=== PATIENT | female | born 1985 | race Caucasian/White ===

== ENCOUNTER 2024-05-21 08:31 | Emergency (ER) | payer MEDICAID ==
[~2024-05-21] VITALS: Ht 157.5 cm; Wt 98.7 kg
[2024-05-21 09:11] LABS: Urine Bacteria None Seen /hpf (None Seen)
[2024-05-21 09:17] LABS: Basophils # (auto) 0.1 10 ^3/uL (0-0.2); Basophils % (auto) 0.6 % (0.0-2.0); Eosinophils # (auto) 0.2 10 ^3/uL (0-0.8); Eosinophils % (auto) 1.1 % (0.0-7.0); Hematocrit 37.2 % (36.0-46.0); Hemoglobin 12.4 g/dL (12.2-16.2); Lymphocytes # (auto) 2.4 10 ^3/uL (0.4-5.4); Mean Corpuscular Hemoglobin 30.3 pg (28.0-32.0); Mean Corpuscular Hgb Conc. 33.3 g/dL (32.0-36.0); Mean Corpuscular Volume 90.9 fL (80.0-100.0); Monocytes # (auto) 1.2 10 ^3/uL (0-1.3); Monocytes % (auto) 7.7 % (0.0-12.0); Neutrophils # (auto) 11.2 10 ^3/uL (1.6-8.6); Neutrophils % (auto) 74.6 % (37.0-80.0); Platelet Count (auto) 461 10^3/uL (140-450); Red Cell Distribution Width 12.6 % (11.8-14.3)
[2024-05-21 09:20] LABS: Urine Blood 2+ /uL (Negative); Urine Clarity Turbid (Clear); Urine Color Yellow (Yellow); Urine Mucus FEW (None Seen); Urine Protein, UAD 1+ (Negative); Urine Specific Gravity 1.032 (1.001-1.035); Urine Urobilinogen 2 mg/dL (Negative); Urine WBC 11 /hpf (0 - 5)
--- NOTE | 2024-05-21 09:23 | ED.PDOC ---
History of Present Illness HPI Comments 39Y F with PMHx cholecystectomy presents to ED for chief complaint lt flank pain x1wk with abd pain, low back pain, intermittent constipation, fatigue, and chills. Pt denies n/v/d and dysuria. Pt had food poisoning 3wks ago and during that time experienced vomiting, constipation, and fever. Pt also went to last week and was told UA had specks of blood in it. To try and alleviate constipation, pt tried taking Senna Lax, olive oil, and colonoscopy prep liquid from family member. Pt states she took Tylenol this morning at 0300. LMP >1yr and pt has IUD. No known allergies. Chief Complaint: Abdominal Pain Time Seen by MD: 08:54 Reviewed Notes: Medications, Allergies Information Source: Patient Mode of Arrival: Ambulatory Severity: Mild Timing: Days Duration: Since onset Past Medical History PAST MEDICAL HISTORY: Denies Surgical History: Cholecystectomy MANAGER TARGET History: Denies all MANAGER TARGET Hx Family History Family History: Unknown Social History Smoker: Non-Smoker Alcohol: Denies ETOH Use Drugs: Denies Drug Use Lives In: Home Constitutional: reports: chills, fatigue; denies: diaphoresis, fever, malaise, sweats, weakness, others EENTM: denies: blurred vision, double vision, ear bleeding, ear discharge, ear drainage, ear pain, ear ringing, eye pain, eye redness, hearing loss, mouth pain, mouth swelling, nasal discharge, nose bleeding, nose congestion, nose pain, photophobia, tearing, throat pain, throat swelling, voice changes, others Respiratory: denies: cough, hemoptysis, orthopnea, SOB at rest, shortness of breath, SOB with excertion, stridor, wheezing, others Cardiovascular: denies: chest pain, dizzy spells, diaphoresis, Dyspnea on exertion, edema, irregular heart beat, left arm pain, lightheadedness, palpitations, PND, syncope, others Gastrointestinal: reports: abdominal pain, constipated; denies: abdomen distended, blood streaked bowels, diarrhea, dysphagia, difficulty swallowing, hematemesis, melena, nausea, poor appetite, poor fluid intake, rectal bleeding, rectal pain, vomiting, others Genitourinary: reports: flank pain; denies: abnormal vagina bleeding, burning, dyspareunia, dysuria, frequency, hematuria, incontinence, pain, , vagina discharge, urgency, others Neurological: denies: dizziness, fainting, headache, left sided numbness, left sided weakness, numbness, paresthesia, pre-existing deficit, right sided numbness, right sided weakness, seizure, speech problems, tingling, tremors, weakness, others Musculoskeletal: reports: back pain; denies: gout, joint pain, joint swelling, muscle pain, muscle stiffness, neck pain, others Integumetry: denies: bruises, change in color, change in hair/nails, dryness, laceration, lesions, lumps, rash, wounds, others Allergic/Immunocompromised: denies: Difficulty Healing, Frequent Infections, Hives, Itching, others Hematologic/Lymphatic: denies: anemia, blood clots, easy bleeding, easy brui sing, swollen glands, others Endocrine: denies: excessive hunger, excessive sweating, excessive thirst, ex cessive urination, flushing, intolerance to cold, intolerance to heat, unexplained weight gain, unexplained weight loss, others Psychiatric: denies: anxiety, bipolar disorder, depression, hopeless, panic disorder, schizophrenia, sleepless, suicidal, others All Other Systems: Reviewed and Negative Physical Exam General Appearance: No Apparent Distress, Normal HEENT: Normal ENT Inspection, Pharynx Normal, TMs Normal Neck: Full Range of Motion, Non-Tender, Normal, Normal Inspection Respiratory: Chest Non-Tender, Lungs Clear, No Accessory Muscle Use, No Respiratory Distress, Normal Breath Sounds Cardiovascular: No Edema, No JVD, No Murmur, No Gallop, Normal Peripheral Pulses, Regular Rate/Rhythm Breast Exam: Deferred Gastrointestinal: No Pulsatile Mass, Normal Bowel Sounds, Tenderness (Lt CVA) Genitalia: Deferred Pelvic: Deferred Rectal: Deferred Extremities: No calf tenderness, Normal capillary refill, Normal inspection, Normal range of motion, Non-tender, No pedal edema Musculoskeletal : Apperance: Normal Neurologic: Alert, sand slinger operator II-XII nml as Tested, No Motor Deficits, Normal Affect, Normal Mood, No Sensory Deficits Cerebellar Function: Normal Reflexes: Normal Skin: Dry, Normal Color, Warm Lymphatic: No Adenopathy Was a procedure done? Was a procedure done?: No Differential Dx Considerations may include: pyelonephritis, UTI, influenza, constipation, covid, kidney stone, colitis X-Ray, Labs, Meds, VS Vital Signs Date Time Temp Pulse Resp B/P (MAP) Pulse Ox O2 Delivery O2 Flow Rate FiO2 05/21/24 08:47 98.9 99 16 126/73 (90) 97 Lab Test 05/21/24 09:03 05/21/24 09:00 Range/Units White Blood Count 15.0 H 4.4-10.8 10^3/uL Red Blood Count 4.10 4.0-5.20 10^6/uL Hemoglobin 12.4 12.2-16.2 g/dL Hematocrit 37.2 36.0-46.0 % Mean Corpuscular Volume 90.9 80.0-100.0 fL Mean Corpuscular Hemoglobin 30.3 28.0-32.0 pg Mean Corpuscular Hemoglobin Concent 33.3 32.0-36.0 g/dL Red Cell Distribution Width 12.6 11.8-14.3 % Platelet Count 461 H 140-450 10^3/uL Mean Platelet Volume 8.3 6.9-10.8 fL Neutrophils (%) (Auto) 74.6 37.0-80.0 % Lymphocytes (%) (Auto) 16.0 10.0-50.0 % Monocytes (%) (Auto) 7.7 0.0-12.0 % Eosinophils (%) (Auto) 1.1 0.0-7.0 % Basophils (%) (Auto) 0.6 0.0-2.0 % Neutrophils # (Auto) 11.2 H 1.6-8.6 10 ^3/uL Lymphocytes # (Auto) 2.4 0.4-5.4 10 ^3/uL Monocytes # (Auto) 1.2 0-1.3 10 ^3/uL Eosinophils # (Auto) 0.2 0-0.8 10 ^3/uL Basophils # (Auto) 0.1 0-0.2 10 ^3/uL Nucleated Red Blood Cells 0.0 % Sodium Level 138 136-145 mmol/L Potassium Level 3.5 3.5-5.1 mmol/L Chloride Level 103 98-107 mmol/L Carbon Dioxide Level 29 20-31 mmol/L Anion Gap 6 5-15 Blood Urea Nitrogen 6 L 9-23 mg/dL Creatinine 0.70 0.550-1.02 mg/dL Glomerular Filtration Rate Calc 113 >90 mL/min BUN/Creatinine Ratio 8.6 L 10.0-20.0 Serum Glucose 122 H 74-106 mg/dL Calcium Level 9.9 8.7-10.4 mg/dL Total Bilirubin 0.5 0.2-1.0 mg/dL Aspartate Amino Transferase (AST) < 8 L 13-40 U/L Alanine Aminotransferase (ALT) 13 7-40 U/L Alkaline Phosphatase 61 46-116 U/L Total Protein 7.7 5.7-8.2 g/dL Albumin 4.5 3.2-4.8 g/dL Beta HCG, Quantitative 1.3 L 1.5-4.2 mIU/mL Urine Color Yellow Yellow Urine Clarity Turbid H Clear Urine pH 6.0 5.0-9.0 Urine Specific [place] 1.032 1.001-1.035 Urine Protein 1+ H Negative Urine Ketones Negative Negative Urine Blood 2+ H Negative /uL Urine Nitrite Negative Negative Urine Bilirubin Negative Negative Urine Urobilinogen 2 H Negative mg/dL Urine Leukocyte Esterase Negative Negative /uL Urine RBC 33 0 - 4 /hpf Urine WBC 11 0 - 5 /hpf Urine Squamous Epithelial Cells Mod <5 /hpf Urine Bacteria None seen None Seen /hpf Urine Mucus Few None Seen Urine Glucose Normal Normal mg/dL [place] [id number] Ph: [phone] DIAGNOSTIC IMAGING Diagnostic Imaging Report : [id number] Signed PATIENT: REGINA RAY ACCT: [id number] UNIT: [id number] : 1985 LOC: ER ROOM / BED: / AGE / SEX: 39 / F ADM STATUS: REG ER SERVICE [id number] ORDERING PHYSICIAN: JOSE FRY MD PROCEDURE(s): KUB - KUB ABDOMEN SINGLE VIEW REASON: abd pain, constipation ORDER NUMBER(s): [id number], ACCESSION NUMBER(s): [id number] INDICATION: abd pain, constipation TECHNIQUE: Multiple views of the abdomen were obtained. COMPARISON: None FINDINGS: Nonobstructive bowel gas pattern noted. There is no evidence for pneumoperitoneum. No abnormal calcifications noted. Intrauterine device is noted. The lung bases are clear. The visualized osseous structures appear intact. IMPRESSION: 1. Nonobstructive bowel gas pattern noted. ATED BY: SCOOTER HOPPER MD DICTATED DATE/TIME: 05/21/24 105 SIGNED BY: SCOOTER HOPPER MD SIGNED DATE/TIME: 05/21/241052 CC: [place] [id number] Ph: [phone] DIAGNOSTIC IMAGING Diagnostic Imaging Report : [id number] Signed PATIENT: REGINA RAY ACCT: [id number] UNIT: [id number] : 1985 LOC: ER ROOM / BED: / AGE / SEX: 39 / F ADM STATUS: REG ER SERVICE [id number] ORDERING PHYSICIAN: JOSE FRY MD PROCEDURE(s): ABPL - CT AB PEL WO CON-NO ORAL OR IV REASON: ro nephrolithiasis ORDER NUMBER(s): [id number], ACCESSION NUMBER(s): [id number] Procedure: CT CT AB PEL WO CON-NO ORAL OR IV 05/21/2024 10:25 AM Indication:ro nephrolithiasis. Comparison Study: None available at time of dictation. Technique: Axial images were obtained and reformatted in coronal and sagittal planes. All CT scans at this medical facility are performed using dose modulation techniques as appropriate to a performed exam including the following: Automated exposure control was utilized; adjustment of the MA and/or KV according to patient size; and use of iterative reconstruction technique. CT Dose: CTDI volume is 19.27 mGy. Dose-length product is 985.0 mGy*cm FINDINGS: Lower Chest: Unremarkable. Hepatobiliary: Gallbladder is surgically absent. Spleen: Unremarkable. Pancreas: Unremarkable. Adrenal Glands: Unremarkable. tract: The kidneys are normal in size bilaterally without hydronephrosis or nephrolithiasis. The urinary bladder is unremarkable. GI tract: The stomach is grossly normal in appearance. No evidence of small bowel obstruction. Scattered colonic diverticula are noted without evidence of diverticulitis. Severe circumferential mural thickening of rectum with extensive adjacent fat stranding noted The appendix is not visualized. No inflammatory change is noted in the right lower quadrant. Lymphatics: No mesenteric, retroperitoneal or periportal lymphadenopathy. Vasculature: The abdominal aorta is normal in in caliber. Pelvic Organs: Anteverted , elongated uterus. The IUD is in good fundal position but its distal tip is very close to the anterior uterine serosa which could be at the level of scar or penetrating the myometrium. Moderate fluid is seen in cul-de-sac. Bones/soft tissues: No acute abnormality. Other: None. IMPRESSION: 1. Circumferential mural thickening of rectum with moderate adjacent fat stranding compatible with proctitis. 2. Moderate fluid is seen in cul-de-sac likely related to proctitis. 3. No urinary calculi. 4. Scattered colonic diverticula without evidence of diverticulitis. 5. The distal tip of the IUD is very close to anterior distal uterine segment serosa which could be due to thinning of uterine wall related to scar or IUD myometrial penetration. Suggest further evaluation with pelvic sonogram. ATED BY: ZAIRA LOWRY MD DICTATED DATE/TIME: 05/21/24 112 SIGNED BY: ZAIRA LOWRY MD SIGNED DATE/TIME: 05/21/24 112 CC: [place] [id number] Ph: [phone] DIAGNOSTIC IMAGING Diagnostic Imaging Report : [id number] Signed PATIENT: REGINA RAY ACCT: [id number] UNIT: [id number] : 1985 LOC: ER ROOM / BED: / AGE / SEX: 39 / F ADM STATUS: REG ER SERVICE 1147 ORDERING PHYSICIAN: JOSE FRY MD PROCEDURE(s): PELUS - PELVIC REASON: ro myometrial penetration of IUD ORDER NUMBER(s): [id number], ACCESSION NUMBER(s): [id number] INDICATION: Concern for myometrial penetration of IUD. TECHNIQUE: Multiple real-time grayscale transabdominal and transvaginal sonographic images along with color and duplex Doppler of the uterus and ovaries were obtained. COMPARISON: None FINDINGS: The uterus measures 9.1 cm. The endometrial stripe is not well seen. Intrauterine device is noted in satisfactory position within the uterine fundus. Trace fluid seen within the cervix. The right ovary measures 3.6 x 3.7 x 2.6 cm. The left ovary measures 3.5 x 2.5 x 2.3 cm. Subsequent color and duplex Doppler interrogation of the ovaries demonstrated symmetric vascular flow to both ovaries. IMPRESSION: 1. Grossly unremarkable pelvic ultrasound. Satisfactory position of intrauterine device. ATED BY: SCOOTER HOPPER MD DICTATED DATE/TIME: 05/21/241255 SIGNED BY: SCOOTER HOPPER MD SIGNED DATE/TIME: 05/21/241255 CC: 39-year-old female presents here with abdominal pain. She also reports difficulty with bowel movements states some often she feels like she has to have BM but nothing comes out. At this time blood work has been done which does demonstrates a leukocytosis of 15. Therefore a CT abdomen pelvis was performed. It demonstrates evidence of proctitis. I spoke with the patient private she declines any rectal intercourse. She denies any reason or exposure to gonorrhea or chlamydia as far as she is concerned. The exact cause of her proctitis is unclear. She does state she had a food poisoning 3 weeks ago that started this all. At this time I will be discharging home with Augmentin. Uterine demonstrates some protein urobilinogen and also blood. She does not report any dysuria. Doubt infection. Advised her however if the blood in the urine and protein continues that she may require seeing a protective signal repairer helper. Patient agrees. CT however did demonstrate questionable positioning of her IUD and recommended a pelvic ultrasound. Pelvic ultrasound has been done which demonstrates satisfactory position of her IUD. Advised patient of this. Advised her to return if his symptoms worsen or persist. Otherwise she is to follow up with the PCP in 2-3 days. Time of 1ST Reevaluation: 09:24 Reevaluation 1ST: Unchanged Time of 2ND Reevaluation: 13:25 Reevaluation 2ND: Improved Patient Education/Counseling: Diagnosis, Treatment Family Education/Counseling: Diagnosis, Treatment Departure 1 Departure Time of Disposition: 10:30 Impression: Primary Impression: Proctitis Additional Impression: Hematuria Qualified Codes: R31.9 - Hematuria, unspecified Disposition: HOME / SELF CARE / HOMELESS Condition: Stable Additional Instructions: Your IUD is in satisfactory position today. Please follow up with the primary care physician. Return to the ER if symptoms worsen or persist. Your prescription for antibiotics has been sent to the pharmacy. Take probiotic yogurt drinks or probiotic tablets while taking the antibiotics to prevent diarrhea from the antibiotics. e-Prescriptions Amoxicillin & Pot Clavulanate (AUGMENTIN TABLET) 875 Mg Tb 875 MG PO BID, #20 TAB Prov: JOSE FRY MD 05/21/24 Critical Care Note Critical Care Time?: No Stability Stability form required: No Heart Score Heart Score: Heart Score Response (Comments) Value History N/A 0 EKG N/A 0 Age N/A 0 Risk Factors N/A 0 Troponin N/A 0 Total 0 I personally scribed for JOSE FRY MD ([email or web address]) on 05/21/24 at 09:23. Electronically submitted by Lili Uribe ([email or web address]). I personally scribed for JOSE FRY MD ([email or web address]) on 05/21/24 at 11:47. Electronically submitted by Lili Uribe ([email or web address]). JOSE FRY MD May 21, 2024 09:23
[2024-05-21 09:35] LABS: Alanine Aminotransferase 13 U/L (7-40); Albumin 4.5 g/dL (3.2-4.8); Alkaline Phosphatase 61 U/L (46-116); Anion Gap 6 (5-15); Aspartate Aminotransferase < 8 U/L (13-40); BUN/Creatinine Ratio 8.6 (10.0-20.0); Bilirubin, Total 0.5 mg/dL (0.2-1.0); Blood Urea Nitrogen 6 mg/dL (9-23); Calcium 9.9 mg/dL (8.7-10.4); Carbon Dioxide 29 mmol/L (20-31); Chloride 103 mmol/L (98-107); Glucose 122 mg/dL (74-106); Potassium 3.5 mmol/L (3.5-5.1); Sodium 138 mmol/L (136-145)
[2024-05-21 09:36] LABS: Total Protein 7.7 g/dL (5.7-8.2)
--- NOTE | 2024-05-21 10:55 | DVH ---
INDICATION: abd pain, constipation TECHNIQUE: Multiple views of the abdomen were obtained. COMPARISON: None FINDINGS: Nonobstructive bowel gas pattern noted. There is no evidence for pneumoperitoneum. No abnormal calcif ications noted. Intrauterine device is noted. The lung bases are clear. The visualized osseous structures appear intact. IMPRESSION: 1. Nonobstructive bowel gas pattern noted.
--- NOTE | 2024-05-21 11:30 | DVH ---
Procedure: CT CT AB PEL WO CON-NO ORAL OR IV 05/21/2024 10:25 AM Indication:ro nephrolithiasis. Comparison Study: None available at time of dictation. Technique: Axial images were obtained and reformatted in coronal and sagittal planes. All CT scans at this medical facility are performed using dose modulation techniques as appropriate t o a performed exam including the following: Automated exposure control was utilized; adjustment of th e MA and/or KV according to patient size; and use of iterative reconstruction technique. CT Dose: CTDI volume is 19.27 mGy. Dose-length product is 985.0 mGy*cm FINDINGS: Lower Chest: Unremarkable. Hepatobiliary: Gallbladder is surgically absent. Spleen: Unremarkable. Pancreas: Unremarkable. Adrenal Glands: Unremarkable. tract: The kidneys are normal in size bilaterally without hydronephrosis or nephrolithiasis. The urinary bladder is unremarkable. GI tract: The stomach is grossly normal in appearance. No evidence of small bowel obstruction. Scatte red colonic diverticula are noted without evidence of diverticulitis. Severe circumferential mural th ickening of rectum with extensive adjacent fat stranding noted The appendix is not visualized. No in flammatory change is noted in the right lower quadrant. Lymphatics: No mesenteric, retroperitoneal or periportal lymphadenopathy. Vasculature: The abdominal aorta is normal in in caliber. Pelvic Organs: Anteverted , elongated uterus. The IUD is in good fundal position but its distal tip is very close to the anterior uterine serosa which could be at the level of scar or penetra ting the myometrium. Moderate fluid is seen in cul-de-sac. Bones/soft tissues: No acute abnormality. Other: None. IMPRESSION: 1. Circumferential mural thickening of rectum with moderate adjacent fat stranding compatible with pr octitis. 2. Moderate fluid is seen in cul-de-sac likely related to proctitis. 3. No urinary calculi. 4. Scattered colonic diverticula without evidence of diverticulitis. 5. The distal tip of the IUD is very close to anterior distal uterine segment serosa which could be d ue to thinning of uterine wall related to scar or IUD myometrial penetration. Suggest furth er evaluation with pelvic sonogram.
--- NOTE | 2024-05-21 12:58 | DVH ---
INDICATION: Concern for myometrial penetration of IUD. TECHNIQUE: Multiple real-time grayscale transabdominal and transvaginal sonographic images along with color and duplex Doppler of the uterus and ovaries were obtained. COMPARISON: None FINDINGS: The uterus measures 9.1 cm. The endometrial stripe is not well seen. Intrauterine device is noted in satisfactory position within the uterine fundus. Trace fluid seen within the cervix. The right ovary measures 3.6 x 3.7 x 2.6 cm. The left ovary measures 3.5 x 2.5 x 2.3 cm. Subsequent color and duplex Doppler interrogation of the ovaries demonstrated symmetric vascular flow to both ovaries. IMPRESSION: 1. Grossly unremarkable pelvic ultrasound. Satisfactory position of intrauterine device.
[2024-05-21] MEDS ORDERED: AUG875T PO (13:24)
[2024-05-21 13:40] VITALS: BP 130/77; PULSE 92; RESP 17; TEMP 98.7; O2SAT 97
== END 2024-05-21 13:43 | disposition home or self-care (01) ==
LOC: ER 08:31
DX: R31.9 Hematuria, unspecified (principal); R10.2 Pelvic and perineal pain; K62.89 Other specified diseases of anus and rectum; Z90.49 Acquired absence of other specified parts of digestive tract
CPT/HCPCS: 36415; 74018; 74176; 76830; 76856; 80053; 81001; 84702; 85025